=== PATIENT | male | born 1945 | race Caucasian/White ===

== ENCOUNTER 2020-05-09 18:32 | Emergency (ER) | payer BC ==
[~2020-05-09] VITALS: Ht 182.9 cm; Wt 77.1 kg
== END 2020-05-09 19:45 | disposition left against medical advice (07) ==
LOC: ER 18:32
DX: Z53.21 Procedure and treatment not carried out due to patient leaving prior to being seen by health care provider (principal)

== ENCOUNTER 2021-11-24 12:46 | Day surgery (SDC) | payer BC ==
[~2021-11-24] VITALS: Ht 182.9 cm; Wt 66.3 kg
== END 2021-11-24 14:59 | disposition home or self-care (01) ==
LOC: ORSCSDS 12:46
PROVIDERS: Student in an Organized Health Care Education/Training Program
PROC: 0DBH8ZX Excision of Cecum, Via Natural or Artificial Opening Endoscopic, Diagnostic (ICD-10-PCS; principal; 2021-11-24 09:30)
PROC: 0DBN8ZX Excision of Sigmoid Colon, Via Natural or Artificial Opening Endoscopic, Diagnostic (ICD-10-PCS; principal; 2021-11-24 09:30)
PROC: 0DBK8ZX Excision of Ascending Colon, Via Natural or Artificial Opening Endoscopic, Diagnostic (ICD-10-PCS; principal; 2021-11-24 09:30)
PROC: 0DBL8ZX Excision of Transverse Colon, Via Natural or Artificial Opening Endoscopic, Diagnostic (ICD-10-PCS; principal; 2021-11-24 09:30)
DX: Z12.11 Encounter for screening for malignant neoplasm of colon (principal); D12.3 Benign neoplasm of transverse colon; D12.2 Benign neoplasm of ascending colon; D12.0 Benign neoplasm of cecum; D12.5 Benign neoplasm of sigmoid colon; K63.89 Other specified diseases of intestine
CPT/HCPCS: J2704; J7120

== ENCOUNTER 2023-03-25 19:13 | Emergency (ER) | payer MEDICARE ==
[~2023-03-25] VITALS: Ht 182.9 cm; Wt 70.3 kg
[2023-03-25 19:25] VITALS: BP 169/81
== END 2023-03-25 21:16 | disposition home or self-care (01) ==
LOC: ER 19:13
DX: R51.9 Headache, unspecified (principal)
CPT/HCPCS: 36415; 70450; 96374; 96375; 99284-25; J0780; J1200; J1885

== ENCOUNTER → 2023-06-28 | Outpatient (CLI) | payer MEDICARE ==
[~2023-06-28] MED LIST: AMLODIPINE BESYL5 MG PO; AMOCLA875 PO; LISI20 PO; ONDA4ODT MM; SULFAMETHOXAZO1 EAC1 PO
[2023-06-28 17:41] LABS: C-REACTIVE PROTEIN, EXT RANGE 1.82 mg/dL (0.000-0.300); Magnesium, Blood 2.5 mg/dL (1.6-2.4)
[2023-06-28 17:51] LABS: Albumin, Blood 3.1 g/dL (3.4-5.0); Albumin/Globulin Ratio 0.8 (0.8-1.8); Bilirubin, Total 0.5 mg/dL (0.1-1.0); Bun/Creatinine Ratio 16.8 (12.0-20.0); Calcium, Blood 8.9 mg/dL (8.5-10.1); Creatinine, Blood 1.25 mg/dL (0.60-1.20); Globulin, Blood 4.1 g/dL (2.2-4.0); Phosphorus, Blood 2.9 mg/dL (2.5-4.9); Potassium, Blood 4.2 mmol/L (3.5-5.5); Thyroid Stimulating Hormone 0.718 uIU/mL (0.360-4.800); Total Protein, Blood 7.2 g/dL (6.4-8.2)
== END | disposition home or self-care (01) ==
LOC: LAB SHORT 14:23 → LAB 14:23
PROVIDERS: Family Medicine
DX: G44.021 Chronic cluster headache, intractable (principal); I10 Essential (primary) hypertension; L85.3 Xerosis cutis
CPT/HCPCS: 80053; 83735; 84100; 84443; 85651; 86140

== ENCOUNTER 2023-06-30 05:48 | Emergency (ER) | payer MEDICARE ==
[~2023-06-30] VITALS: Ht 180.3 cm; Wt 65.8 kg
[2023-06-30] MEDS ORDERED: LISI20 PO (05:59)
[2023-06-30] MEDS ORDERED: AMLODIPINE BESYL5 MG PO (05:59)
[2023-06-30] MEDS ORDERED: SULFAMETHOXAZO1 EAC1 PO (05:59)
[2023-06-30 06:19] LABS: BASOPHILS ABSOLUTE AUTO 0.04 K/mm3 (0.00-0.23); BASOPHILS PERCENT AUTO 1 % (0-2); EOSINOPHILS ABSOLUTE AUTO 0.02 K/mm3 (0.00-0.68); EOSINOPHILS PERCENT AUTO 0 % (0-6); Hematocrit 38.2 % (37.0-53.0); Hemoglobin 12.5 g/dL (13.5-17.5); IMMATURE GRAN ABSOLUTE AUTO 0.03 K/mm3 (0.00-0.10); IMMATURE GRAN PERCENT AUTO 1 % (0-1); LYMPHOCYTES ABSOLUTE AUTO 0.32 K/mm3 (0.84-5.20); LYMPHOCYTES PERCENT AUTO 5 % (21-46); MONOCYTES ABSOLUTE AUTO 0.56 K/mm3 (0.16-1.47); MONOCYTES PERCENT AUTO 9 % (4-13); Mean Corpuscular HGB 28.9 pg (26.0-34.0); Mean Corpuscular HGB Conc 32.7 g/dL (31.5-36.5); Mean Corpuscular Volume 88 fL (80-100); NEUTROPHILS ABSOLUTE AUTO 5.06 K/mm3 (1.96-9.15); NEUTROPHILS PERCENT AUTO 84 % (41-73); Platelet Count 217 K/mm3 (150-400); RDW Coefficient Variation 13.2 % (11.7-14.2); Red Blood Cell Count 4.32 M/mm3 (4.30-5.90); White Blood Cell Count 6.03 K/mm3 (4.00-11.30)
[2023-06-30 06:47] LABS: Albumin, Blood 3.1 g/dL (3.4-5.0); Albumin/Globulin Ratio 0.8 (0.8-1.8); Bilirubin, Total 0.8 mg/dL (0.1-1.0); Bun/Creatinine Ratio 14.1 (12.0-20.0); Calcium, Blood 8.7 mg/dL (8.5-10.1); Creatinine, Blood 1.56 mg/dL (0.60-1.20); Globulin, Blood 3.8 g/dL (2.2-4.0); Potassium, Blood 4.7 mmol/L (3.5-5.5); Total Protein, Blood 6.9 g/dL (6.4-8.2)
[2023-06-30 08:44] LABS: Influenza A, PCR NEGATIVE (NEGATIVE); Influenza B, PCR NEGATIVE (NEGATIVE); Resp Syncytial Virus, PCR NEGATIVE (NEGATIVE); SARS-Cov-2 (COVID-19) PCR, MMC NEGATIVE (NEGATIVE)
[2023-06-30] MEDS ORDERED: AMOCLA875 PO (09:20)
[2023-06-30] MEDS ORDERED: ONDA4ODT MM (09:20)
[2023-06-30 09:33] VITALS: BP 105/79
== END 2023-06-30 09:33 | disposition home or self-care (01) ==
LOC: ER 05:48
PROVIDERS: Emergency Medicine; Student in an Organized Health Care Education/Training Program
DX: J18.9 Pneumonia, unspecified organism (principal); N17.9 Acute kidney failure, unspecified; E86.0 Dehydration; Z20.822 Contact with and (suspected) exposure to COVID-19; I10 Essential (primary) hypertension; Z79.2 Long term (current) use of antibiotics; Z79.899 Other long term (current) drug therapy
CPT/HCPCS: 0241U; 71045; 80053; 84145; 85025; 93005; 93010; 96361; 96374; 99284-25; A9270; J2405; J7030

== ENCOUNTER 2023-07-18 14:11 | Inpatient (IN) | payer MEDICARE ==
[~2023-07-18] VITALS: Ht 180.3 cm; Wt 68.0 kg
[2023-07-18] VITALS (7 sets, daily range): BP systolic 117–126; BP diastolic 56–70
--- NOTE | 2023-07-18 18:53 | NUR ---
ADMIT NOTE. PT WAS A DIRECT ADMIT FROM [facility] IN [place]. PT HAS HAD LOW GRADE FEVER 101.2 SINCE ARRIVAL. BP HAS BEEN STABLE. PT HAS MOSTLY BEEN RESTING SINCE ARRIVING. CONCERNS FOR FALL RISK, BED ALARM IS ACTIVE. PT IS WEAK AND FORGETFUL, FELL THIS MORNING IN THE BATHROOM AT HOME. WAS HERE THIS AFTERNOON, CONTACT NUMBER ON THE BOARD. POWERGLIDE PLACED TO LUE. PT IS ABLE TO MAKE NEEDS KNOWN, CALL LIGHT IS WITHIN REACH.
--- NOTE | 2023-07-18 19:40 | NUR ---
ASSESSMENT/ASSUMED CARE PT SITTING UP IN BED WITH EYES CLOSED. AWAKENS EASILY TO VERBAL STIMULI. PT VERY [place]. DENIES PAIN OR DISCOMFORT. LUNGS CLEAR ON ROOMAIR. RESP EVEN AND NONLABORED. HEART RATE REGULAR. DENIES CHEST PAIN OR PRESSURE. BP STABLE. RIGHT HAND MIDDLE FINGER RED AND SWOLLEN. PT STATES,"IT LOOKS A LOT BETTER ALREADY". REMOVED IV TO RIGHT WRIST TO BETTER ASSESS SWELLING AND REDNESS TO RIGHT HAND. BT+ ABD SOFT AND NONTENDER. POWER GLIDE TO LEFT UPPER ARM WITH IV ANTIBIOTIC INFUSING. SITE CLEAR AND DRSG INTACT. PT ABLE TO STAND AT BEDSIDE WITH STAFF TO VOID. VOIDED 175 ML YELLOW URINE. BACK TO BED. BED ALARM ON. TEMP 101.6. CALL OUT TO MD FOR TYLENOL.
--- NOTE | 2023-07-18 19:50 | NUR ---
SPOKE WITH RESIDENT REGARDING FEVER 101.6. RECEIVED ORDER FOR TYLENOL
[2023-07-19 03:33] VITALS: BP 174/75
--- NOTE | 2023-07-19 04:11 | NUR ---
FEVER TEMP 101.3, GIVEN TYLENOL AND REMOVED BLANKET. PT C/O BEING COLD. RECHECK TEMP PT HAD COVERED SELF WITH BLANKET. TEMP UP 103.7. REMOVED BLANKET. TALKED WITH DR GALINDO REGARDING TEMP, OBTAINED ONE TIME ORDER FOT TORADOL IV. PT STATES,"I WANT MY BLANKET BACK. I WAS JUST GETTING WARM AND NOW I'M COLD AGAIN. I DON'T CARE ABOUT A FEVER. I WANT TO BE WARM". WILL RECHECK TEMP
[2023-07-19 04:13] LABS: BASOPHILS ABSOLUTE AUTO 0.02 K/mm3 (0.00-0.23); BASOPHILS PERCENT AUTO 1 % (0-2); EOSINOPHILS PERCENT AUTO 0 % (0-6); Hematocrit 37.5 % (37.0-53.0); Hemoglobin 11.9 g/dL (13.5-17.5); IMMATURE GRAN ABSOLUTE AUTO 0.02 K/mm3 (0.00-0.10); IMMATURE GRAN PERCENT AUTO 1 % (0-1); LYMPHOCYTES ABSOLUTE AUTO 0.24 K/mm3 (0.84-5.20); LYMPHOCYTES PERCENT AUTO 8 % (21-46); MONOCYTES ABSOLUTE AUTO 0.07 K/mm3 (0.16-1.47); MONOCYTES PERCENT AUTO 2 % (4-13); Mean Corpuscular HGB 28.7 pg (26.0-34.0); Mean Corpuscular HGB Conc 31.7 g/dL (31.5-36.5); Mean Corpuscular Volume 91 fL (80-100); Mean Platelet Volume 9.6 fL (9.1-12.4); NEUTROPHILS ABSOLUTE AUTO 2.62 K/mm3 (1.96-9.15); NEUTROPHILS PERCENT AUTO 88 % (41-73); Platelet Count 178 K/mm3 (150-400); RDW Coefficient Variation 12.9 % (11.7-14.2); RDW Standard Deviation 42.8 fL (35.1-46.3); Red Blood Cell Count 4.14 M/mm3 (4.30-5.90); White Blood Cell Count 2.97 K/mm3 (4.00-11.30)
[2023-07-19 04:32] LABS: Albumin, Blood 2.6 g/dL (3.4-5.0); Albumin/Globulin Ratio 0.6 (0.8-1.8); Bilirubin, Total 1.1 mg/dL (0.1-1.0); Bun/Creatinine Ratio 11.1 (12.0-20.0); C-REACTIVE PROTEIN, EXT RANGE 12.6 mg/dL (0.000-0.300); Calcium, Blood 8.2 mg/dL (8.5-10.1); Creatinine, Blood 1.35 mg/dL (0.60-1.20); Magnesium, Blood 1.8 mg/dL (1.6-2.4); Phosphorus, Blood 2.7 mg/dL (2.5-4.9); Potassium, Blood 4.4 mmol/L (3.5-5.5); Total Protein, Blood 6.6 g/dL (6.4-8.2)
--- NOTE | 2023-07-19 06:36 | NUR ---
SHIFT SUMMARY PT HAVING FEVERS DURING THE NIGHT WITH TMAX 103.7. MED WITH TYLENOL AND TORADOL FOR FEVERS WITH GOOD RESULTS. IV ANTIBIOTICS GIVEN PER ORDER. PT MOVING AND TURNING SELF IN BED. STANDS AT BEDSIDE TO VOID WITH ONE ASSIST. PT RESTING QUIETLY. REPORT TO ON COMING NURSE
[2023-07-19 07:48] VITALS: BP 99/51
--- NOTE | 2023-07-19 07:50 | NUR ---
ADMISSION ASSESSMENT: Pt appears to be sleeping. Wakes with verbal stimululs. A/Ox4. LS clear. HR reg with murmur noted. BT positive. Pt denies pain at this time. Redness and swelling noted to R middle finger. Pulses palp. Pt is afebrial at this time. Will continue to monitor for temp. Call light in reach. Will continue to monitor.
[2023-07-19 15:48] VITALS: BP 157/94
--- NOTE | 2023-07-19 17:26 | NUR ---
SHIFT SUMMARY: Pt sitting up in bed eating dinner. States that he isn't that hungery. Pt has been dozing for most of the day. Had a Temp 102.2 this afternoon that was treated with tylenol. Temp has since decreased. Other vss. Pt denied other needs this shift. No other changes. Will report to night RN.
[2023-07-19 17:40] LABS: Vancomycin, Trough 13.7 ug/mL (5.0-10.0)
[2023-07-19 20:30] VITALS: BP 115/58
--- NOTE | 2023-07-19 21:30 | NUR ---
YASSUMPTION OF CARE/ASSESSMENT: ASSUMED CARE OF PT AT 1900. PT IS A&O X 4, FOLLOWING DIRECTIONS AND COOPERATIVE WITH CARE; PT HARD OF HEARING. PT CURRENTLY ON RA WITH SPO2 96< AND NO C/O SOB AT THIS TIME. HR 70'S, SBP 110'S AND PT DENIES CHEST PAIN/PRESSURE. PT HAS HYPERACTIVE BOWEL SOUNDS IN ALL QUADRANTS; ABD SOFT, NON-TENDER AND TOLERATING PO INTAKE. PT USING URINAL AT BEDSIDE WITH SBA. PT MAKES NEEDS KNOWN. PT HAS INDEPENDENT BED MOBILITY. PT TMAX 100.5; MEDICATED WITH TYLENOL PER EMAR AND NO TEMP 98.4. BED LOWERED, CALL LIGHT IN REACH, PT SLEEPING AT THIS TIME.
[2023-07-20 05:10] LABS: BASOPHILS ABSOLUTE AUTO 0.02 K/mm3 (0.00-0.23); BASOPHILS PERCENT AUTO 1 % (0-2); EOSINOPHILS PERCENT AUTO 0 % (0-6); Hematocrit 34.3 % (37.0-53.0); Hemoglobin 11.1 g/dL (13.5-17.5); Mean Corpuscular HGB 28.9 pg (26.0-34.0); Mean Corpuscular HGB Conc 32.4 g/dL (31.5-36.5); Mean Corpuscular Volume 89 fL (80-100); Mean Platelet Volume 9.5 fL (9.1-12.4); Platelet Count 117 K/mm3 (150-400); RDW Standard Deviation 42.5 fL (35.1-46.3); Red Blood Cell Count 3.84 M/mm3 (4.30-5.90); White Blood Cell Count 2.89 K/mm3 (4.00-11.30)
[2023-07-20 05:33] LABS: Albumin, Blood 2.1 g/dL (3.4-5.0); Anion Gap 6 mmol/L (6-16); Blood Urea Nitrogen 20 mg/dL (8-24); Bun/Creatinine Ratio 17.1 (12.0-20.0); CO2, Blood 21 mmol/L (21-32); Calcium, Blood 7.9 mg/dL (8.5-10.1); Chloride, Blood 111 mmol/L (98-108); Creatinine, Blood 1.17 mg/dL (0.60-1.20); Glomerular Filtration Rate 65 (60-); Glucose, Blood 80 mg/dL (70-99); Magnesium, Blood 2.3 mg/dL (1.6-2.4); Phosphorus, Blood 2.5 mg/dL (2.5-4.9); Potassium, Blood 3.9 mmol/L (3.5-5.5); Sodium, Blood 138 mmol/L (136-145)
[2023-07-20 05:34] LABS: IMMATURE GRAN ABSOLUTE AUTO 0.01 K/mm3 (0.00-0.10); IMMATURE GRAN PERCENT AUTO 0 % (0-1); LYMPHOCYTES ABSOLUTE AUTO 0.54 K/mm3 (0.84-5.20); LYMPHOCYTES PERCENT AUTO 19 % (21-46); MONOCYTES ABSOLUTE AUTO 0.23 K/mm3 (0.16-1.47); MONOCYTES PERCENT AUTO 8 % (4-13); NEUTROPHILS ABSOLUTE AUTO 2.09 K/mm3 (1.96-9.15); NEUTROPHILS PERCENT AUTO 72 % (41-73)
--- NOTE | 2023-07-20 06:06 | NUR ---
SHIFT SUMMARY: NO ACUTE CHANGES THROUGHOUT THE SHIFT, VSS TRHOUGHOUT THE NIGHT. PT TMAX 100.3, TYLENOL GIVEN PER EMAR AND NOW TEMP AT 98.2. PT INDEPENDENT WITH BED MOBILITY. SBA FOR URINAL AT BEDSIDE; PT UP ONCE THIS SHIFT TO USE URINAL WITH 275 OUTPUT AND WAS STEADY ON FEET. PT SLEPT FOR THE WHOLE SHIFT. BED LOWERED, CALL LIGHT IN REACH.
[2023-07-20 07:22] VITALS: BP 119/66
--- NOTE | 2023-07-20 07:23 | NUR ---
AM ASSESSMENT: Pt resting in bed at this time. LS clear. HR reg with murmur noted. BT positive. Pulses palp. R middle finger with swelling noted but redness greatly decreased from yesterday. VSS. Pt denies pain. States that he is feeling better. Call light in reach, Will continue to monitor.
--- NOTE | 2023-07-20 09:18 | NUR ---
UPDATE/TRANSFER: Report given to medical floor RN. Pt moved via bed to room 359. Stable at time of transfer. number called and message left about pt moving rooms.
[2023-07-20 09:25] VITALS: BP 132/57
[2023-07-20 15:06] VITALS: BP 155/64
[2023-07-20 17:34] LABS: Vancomycin, Random 14.2 ug/mL
--- NOTE | 2023-07-20 20:04 | NUR ---
SHIFT SUMMARY PATIENT WITH NO ACUTE EVENTS DURING SHIFT. MEDICATED PER EMAR. CALL LIGT IN REACH, BED IN LOW POSITION. AOX4 AND INDEPENDENT TO BATHROOM.
[2023-07-20 20:27] VITALS: BP 151/62
[2023-07-21 04:07] VITALS: BP 126/59
[2023-07-21 05:00] LABS: BASOPHILS ABSOLUTE AUTO 0.02 K/mm3 (0.00-0.23); BASOPHILS PERCENT AUTO 1 % (0-2); EOSINOPHILS PERCENT AUTO 0 % (0-6); Hemoglobin 10.8 g/dL (13.5-17.5); Mean Corpuscular HGB 28.8 pg (26.0-34.0); Mean Corpuscular HGB Conc 32.7 g/dL (31.5-36.5); Mean Corpuscular Volume 88 fL (80-100); Mean Platelet Volume 9.9 fL (9.1-12.4); Platelet Count 111 K/mm3 (150-400); RDW Coefficient Variation 12.9 % (11.7-14.2); RDW Standard Deviation 41.4 fL (35.1-46.3); Red Blood Cell Count 3.75 M/mm3 (4.30-5.90); White Blood Cell Count 3.79 K/mm3 (4.00-11.30)
[2023-07-21 05:09] LABS: IMMATURE GRAN ABSOLUTE AUTO 0.02 K/mm3 (0.00-0.10); IMMATURE GRAN PERCENT AUTO 1 % (0-1); LYMPHOCYTES ABSOLUTE AUTO 0.87 K/mm3 (0.84-5.20); LYMPHOCYTES PERCENT AUTO 23 % (21-46); MONOCYTES ABSOLUTE AUTO 0.46 K/mm3 (0.16-1.47); MONOCYTES PERCENT AUTO 12 % (4-13); NEUTROPHILS ABSOLUTE AUTO 2.42 K/mm3 (1.96-9.15); NEUTROPHILS PERCENT AUTO 64 % (41-73)
[2023-07-21 05:28] LABS: Albumin, Blood 2.1 g/dL (3.4-5.0); Anion Gap 6 mmol/L (6-16); Blood Urea Nitrogen 18 mg/dL (8-24); Bun/Creatinine Ratio 17.3 (12.0-20.0); CO2, Blood 22 mmol/L (21-32); Calcium, Blood 8.1 mg/dL (8.5-10.1); Chloride, Blood 112 mmol/L (98-108); Creatinine, Blood 1.04 mg/dL (0.60-1.20); Glomerular Filtration Rate 74 (60-); Glucose, Blood 89 mg/dL (70-99); Magnesium, Blood 2.1 mg/dL (1.6-2.4); Phosphorus, Blood 2.1 mg/dL (2.5-4.9); Potassium, Blood 3.8 mmol/L (3.5-5.5); Sodium, Blood 140 mmol/L (136-145)
--- NOTE | 2023-07-21 06:32 | NUR ---
SHIFT SUMMARY PT REMAINS A&O X4, ON RA, RESP UNLABORED, PT DENIES PAIN, ENC TO ELEVATE RIGHT HAND, DB&C EDUCATION PROVIDED, PT HAD AN INCREASED TEMP OF 102.2 THROUGH THE NIGHT, HE WAS GIVEN PO TYLENOL, AFEBRILE AT THIS TIME, SBA TO THE BATHROOM, NO OTHER CHANGES NOTED, RESTING QUIETLY THIS AT THIS TIME, CALL LIGHT IN REACH.
[2023-07-21 07:54] VITALS: BP 132/65
[2023-07-21 15:14] VITALS: BP 128/58
--- NOTE | 2023-07-21 17:45 | NUR ---
SUMMARY- PT DENIES ANY PAIN THIS SHIFT. PT GIVEN TYLENOL FOR TEMP OF 100.4 THIS EVENING. PT STAYED IN BED MOST OF THE SHIFT. SBA TO THE BATHROOM. AAOX4, BUT FORGETFUL.
[2023-07-21 19:43] VITALS: BP 124/55
[2023-07-22 02:30] VITALS: BP 149/71
--- NOTE | 2023-07-22 04:56 | NUR ---
GTA SUMMARY: A&Ox4. PLEASANT AND COOPERATIVE WITH CARE. CALLS APPROPRIATELY AND IS ABLE TO COMMUNICATE NEEDS EFFECTIVELY. POWERGLIDE TABBY FLUSHES BUT DOES NOT DRAW. LABS DRAWN THIS MORNING; NO CRITICAL RESULTS RECEIVED. SLEPT WELL THROUGHOUT THE NIGHT. NO C/O PAIN OR DISCOMFORT. NO CONCERNS. REPORT TO ONCOMING RN.
[2023-07-22 05:06] LABS: BASOPHILS ABSOLUTE AUTO 0.01 K/mm3 (0.00-0.23); BASOPHILS PERCENT AUTO 0 % (0-2); EOSINOPHILS PERCENT AUTO 0 % (0-6); Hematocrit 32.9 % (37.0-53.0); Hemoglobin 10.7 g/dL (13.5-17.5); IMMATURE GRAN ABSOLUTE AUTO 0.02 K/mm3 (0.00-0.10); IMMATURE GRAN PERCENT AUTO 1 % (0-1); LYMPHOCYTES ABSOLUTE AUTO 0.94 K/mm3 (0.84-5.20); LYMPHOCYTES PERCENT AUTO 22 % (21-46); MONOCYTES ABSOLUTE AUTO 0.43 K/mm3 (0.16-1.47); MONOCYTES PERCENT AUTO 10 % (4-13); Mean Corpuscular HGB 28.3 pg (26.0-34.0); Mean Corpuscular HGB Conc 32.5 g/dL (31.5-36.5); Mean Corpuscular Volume 87 fL (80-100); Mean Platelet Volume 9.7 fL (9.1-12.4); NEUTROPHILS ABSOLUTE AUTO 2.92 K/mm3 (1.96-9.15); NEUTROPHILS PERCENT AUTO 68 % (41-73); Platelet Count 112 K/mm3 (150-400); RDW Coefficient Variation 12.9 % (11.7-14.2); RDW Standard Deviation 40.9 fL (35.1-46.3); Red Blood Cell Count 3.78 M/mm3 (4.30-5.90); White Blood Cell Count 4.32 K/mm3 (4.00-11.30)
[2023-07-22 05:32] LABS: Albumin, Blood 2.1 g/dL (3.4-5.0); Anion Gap 2 mmol/L (6-16); Blood Urea Nitrogen 15 mg/dL (8-24); Bun/Creatinine Ratio 16.6 (12.0-20.0); CO2, Blood 24 mmol/L (21-32); Calcium, Blood 7.8 mg/dL (8.5-10.1); Chloride, Blood 113 mmol/L (98-108); Glomerular Filtration Rate 89 (60-); Glucose, Blood 99 mg/dL (70-99); Phosphorus, Blood 1.7 mg/dL (2.5-4.9); Potassium, Blood 3.9 mmol/L (3.5-5.5); Sodium, Blood 139 mmol/L (136-145)
[2023-07-22 07:25] VITALS: BP 138/73
[2023-07-22 15:08] VITALS: BP 117/57
--- NOTE | 2023-07-22 18:18 | NUR ---
SUMMARY- NO ACUTE EVENTS THIS SHIFT. NO HIGH TEMPS THIS SHIFT. PT DENIES PAIN. SBA. AAOX4 BUT FORGETFUL.
[2023-07-22 19:44] VITALS: BP 125/66
[2023-07-22 22:26] LABS: Vancomycin, Trough 15.9 ug/mL (5.0-10.0)
[2023-07-23 04:38] VITALS: BP 145/69
[2023-07-23 05:11] LABS: BASOPHILS ABSOLUTE AUTO 0.01 K/mm3 (0.00-0.23); BASOPHILS PERCENT AUTO 0 % (0-2); EOSINOPHILS PERCENT AUTO 0 % (0-6); Hematocrit 32.7 % (37.0-53.0); Hemoglobin 10.6 g/dL (13.5-17.5); IMMATURE GRAN ABSOLUTE AUTO 0.01 K/mm3 (0.00-0.10); IMMATURE GRAN PERCENT AUTO 0 % (0-1); LYMPHOCYTES ABSOLUTE AUTO 1.06 K/mm3 (0.84-5.20); LYMPHOCYTES PERCENT AUTO 23 % (21-46); MONOCYTES ABSOLUTE AUTO 0.46 K/mm3 (0.16-1.47); MONOCYTES PERCENT AUTO 10 % (4-13); Mean Corpuscular HGB 28.3 pg (26.0-34.0); Mean Corpuscular HGB Conc 32.4 g/dL (31.5-36.5); Mean Corpuscular Volume 87 fL (80-100); Mean Platelet Volume 10.3 fL (9.1-12.4); NEUTROPHILS ABSOLUTE AUTO 2.99 K/mm3 (1.96-9.15); NEUTROPHILS PERCENT AUTO 66 % (41-73); Platelet Count 136 K/mm3 (150-400); RDW Coefficient Variation 12.8 % (11.7-14.2); Red Blood Cell Count 3.75 M/mm3 (4.30-5.90); White Blood Cell Count 4.53 K/mm3 (4.00-11.30)
[2023-07-23 06:09] LABS: Albumin, Blood 2.1 g/dL (3.4-5.0); Anion Gap 2 mmol/L (6-16); Blood Urea Nitrogen 11 mg/dL (8-24); Bun/Creatinine Ratio 11.8 (12.0-20.0); CO2, Blood 26 mmol/L (21-32); Chloride, Blood 111 mmol/L (98-108); Creatinine, Blood 0.93 mg/dL (0.60-1.20); Glomerular Filtration Rate 85 (60-); Glucose, Blood 99 mg/dL (70-99); Phosphorus, Blood 1.7 mg/dL (2.5-4.9); Potassium, Blood 4.1 mmol/L (3.5-5.5); Sodium, Blood 139 mmol/L (136-145)
--- NOTE | 2023-07-23 06:43 | NUR ---
SUMMARY: PT A/OX4, CALLS APPROPRIATELY TO SPECIFY NEEDS AND IS PLEASANT AND COOPERATIVE W/CARE. HE'S UP INDEPENDENTLY/SBA IN ROOM AND IS AWARE OF LIMITATIONS. IV ABX RECEIVED FOR R.INDEX FINGER CELLULITIS, SWELLING AND ROM IMPROVING. VSS/AFEBRILE, NO ACUTE CHANGES. POSSIBLE D/C TODAY. WCTM AND REPORT TO DAY RN.
[2023-07-23 07:32] VITALS: BP 142/69
[2023-07-23] MEDS ORDERED: LISI20 PO (13:57)
--- NOTE | 2023-07-23 16:33 | NUR ---
KRISTEN- RN BROUGHT PT DOWN FRO DC IN WC IN STABLE CONDITION. PT LEFT WITH ALL BELONGINGS/ PT SIGNED ALL DC PAPERWORK AND VERBALLY AGREED TO ALL DC INSTRUCTIONS.
== END 2023-07-23 15:10 | disposition home or self-care (01) | DRG 603 ==
LOC: PCU 14:11 → MEDS 07-20 09:39
PROVIDERS: ADMIT Family Medicine
DX: L03.011 Cellulitis of right finger (principal); N17.9 Acute kidney failure, unspecified; I50.32 Chronic diastolic (congestive) heart failure; N40.0 Benign prostatic hyperplasia without lower urinary tract symptoms; M19.90 Unspecified osteoarthritis, unspecified site; I11.0 Hypertensive heart disease with heart failure; F41.8 Other specified anxiety disorders; Z79.811 Long term (current) use of aromatase inhibitors; Z79.899 Other long term (current) drug therapy
CPT/HCPCS: 36415; 73221; 80053; 80069; 80202; 83735; 84100; 85025; 85651; 86140; 97161; 97165; 97535; A9270; C1751; C8929; J0692; J1650; J1885; J3370; J3475; J7050; J7060; Q9957

== ENCOUNTER → 2023-07-18 | Outpatient (CLI) | payer MEDICARE | LOC: LAB SHORT 10:51 → LAB 10:51 | DX: L03.011 Cellulitis of right finger (principal) | CPT/HCPCS: 87040 ==

== ENCOUNTER 2024-08-21 11:32 | Day surgery (SDC) | payer OTHER ==
[~2024-08-21] VITALS: Ht 180.3 cm; Wt 71.7 kg
[~2024-08-21 11:32] MED LIST changes: +Balanced Salt Epinephrine Irrigation Solution 500 mL IR SCH; +Lidocaine HCl/Pf 1% 5 ML VIAL XX SCH; +Moxifloxacin HCL 0.5 MG/0.1 ML 0.4MLSYR LEFTEYE SCH; +NS 500 ML IV ONE; +PHENYLEPHRINE\\TROPICAMIDE\\TETRACAINE OPHTHALMIC DILATING SOLN LEFTEYE PRN; +Povidone-Iodine 450 DROP/30 ML Solution LEFTEYE SCH; +Povidone-Iodine 450 DROP/30 ML Solution ONE; +Tetracaine HCl/Pf 0.5% Opth Soln 4 ml ONE; +Triamcinolone Inj Susp 40 MG / ML 1ML Vial INJ SCH; +Triamcinolone Inj Susp 40 MG / ML 1ML Vial ONE
[2024-08-21] MEDS ORDERED: NS 500 ML IV ONE ×2 (11:48)
[2024-08-21] MEDS ORDERED: TAMSULOSIN HCL0.4 M1 PO (11:53)
[2024-08-21] MEDS ORDERED: FentaNYL Citrate 50 MCG/ML 2 ML Injection ONE (12:16)
[2024-08-21 13:01] VITALS: BP 117/65
== END 2024-08-21 13:20 | disposition home or self-care (01) ==
LOC: ORSCSDS 11:32
PROVIDERS: Ophthalmology
PROC: 08RK3JZ Replacement of Left Lens with Synthetic Substitute, Percutaneous Approach (ICD-10-PCS; principal; 2024-08-21 13:00)
DX: H25.813 Combined forms of age-related cataract, bilateral (principal); I10 Essential (primary) hypertension; Z79.899 Other long term (current) drug therapy
CPT/HCPCS: J3010; J3301; J7040; V2632

== ENCOUNTER 2024-08-28 10:46 | Day surgery (SDC) | payer OTHER ==
[~2024-08-28] VITALS: Ht 182.9 cm; Wt 72.3 kg
[~2024-08-28 10:46] MED LIST changes: -Moxifloxacin HCL 0.5 MG/0.1 ML 0.4MLSYR LEFTEYE SCH; +Moxifloxacin HCL 0.5 MG/0.1 ML 0.4MLSYR RIGHTEYE SCH; -PHENYLEPHRINE\\TROPICAMIDE\\TETRACAINE OPHTHALMIC DILATING SOLN LEFTEYE PRN; +PHENYLEPHRINE\\TROPICAMIDE\\TETRACAINE OPHTHALMIC DILATING SOLN RIGHTEYE PRN; -Povidone-Iodine 450 DROP/30 ML Solution LEFTEYE SCH; +Povidone-Iodine 450 DROP/30 ML Solution RIGHTEYE SCH; +TAMSULOSIN HCL0.4 M1 PO; +Tetracaine HCl 0.5% Opth Soln 15 ml ONE
[2024-08-28] MEDS ORDERED: NS 500 ML IV ONE (12:12)
[2024-08-28] MEDS ORDERED: FentaNYL Citrate 50 MCG/ML 2 ML Injection ONE (12:41)
[2024-08-28] MEDS ORDERED: Midazolam HCl 1MG / ML 2ML Vial ONE (12:41)
[2024-08-28] MEDS ORDERED: Ondansetron HCl 2 MG / ML 2ML Vial ONE (12:41)
[2024-08-28 13:26] VITALS: BP 112/56
--- NOTE | 2024-08-28 13:27 | NUR ---
08/28/24 1327 Moriah Lynn PT UP DRINKING DIET PEPSI WITHOUT ISSUE. SPOUSE TAIWO DID NOT ANSWER, WILL KEEP TRYING.
== END 2024-08-28 13:33 | disposition home or self-care (01) ==
LOC: ORSCSDS 10:46
PROVIDERS: Ophthalmology
PROC: 08RJ3JZ Replacement of Right Lens with Synthetic Substitute, Percutaneous Approach (ICD-10-PCS; principal; 2024-08-28 13:00)
DX: H25.811 Combined forms of age-related cataract, right eye (principal); Z96.1 Presence of intraocular lens; I10 Essential (primary) hypertension; Z79.899 Other long term (current) drug therapy
CPT/HCPCS: J2250; J2405; J3010; J3301; J7040; V2632

== ENCOUNTER 2024-12-18 02:27 | Emergency (ER) | payer MEDICARE ==
[~2024-12-18] VITALS: Ht 182.9 cm; Wt 70.8 kg
[~2024-12-18 02:27] MED LIST changes: -Balanced Salt Epinephrine Irrigation Solution 500 mL IR SCH; -Lidocaine HCl/Pf 1% 5 ML VIAL XX SCH; -Moxifloxacin HCL 0.5 MG/0.1 ML 0.4MLSYR RIGHTEYE SCH; -NS 500 ML IV ONE; -PHENYLEPHRINE\\TROPICAMIDE\\TETRACAINE OPHTHALMIC DILATING SOLN RIGHTEYE PRN; -Povidone-Iodine 450 DROP/30 ML Solution ONE; -Povidone-Iodine 450 DROP/30 ML Solution RIGHTEYE SCH; -Tetracaine HCl 0.5% Opth Soln 15 ml ONE; -Tetracaine HCl/Pf 0.5% Opth Soln 4 ml ONE; -Triamcinolone Inj Susp 40 MG / ML 1ML Vial INJ SCH; -Triamcinolone Inj Susp 40 MG / ML 1ML Vial ONE
[2024-12-18 02:41] LABS: BASOPHILS ABSOLUTE AUTO 0.02 K/mm3 (0.00-0.23); BASOPHILS PERCENT AUTO 0 % (0-2); EOSINOPHILS ABSOLUTE AUTO 0.08 K/mm3 (0.00-0.68); EOSINOPHILS PERCENT AUTO 1 % (0-6); Hematocrit 35.4 % (37.0-53.0); Hemoglobin 11.8 g/dL (13.5-17.5); IMMATURE GRAN ABSOLUTE AUTO 0.01 K/mm3 (0.00-0.10); IMMATURE GRAN PERCENT AUTO 0 % (0-1); LYMPHOCYTES ABSOLUTE AUTO 0.29 K/mm3 (0.84-5.20); LYMPHOCYTES PERCENT AUTO 5 % (21-46); MONOCYTES PERCENT AUTO 13 % (4-13); Mean Corpuscular HGB 29.8 pg (26.0-34.0); Mean Corpuscular HGB Conc 33.3 g/dL (31.5-36.5); Mean Corpuscular Volume 89 fL (80-100); Mean Platelet Volume 9.2 fL (9.1-12.4); NEUTROPHILS ABSOLUTE AUTO 5.02 K/mm3 (1.96-9.15); NEUTROPHILS PERCENT AUTO 81 % (41-73); Platelet Count 226 K/mm3 (150-400); RDW Standard Deviation 42.5 fL (35.1-46.3); Red Blood Cell Count 3.96 M/mm3 (4.30-5.90); White Blood Cell Count 6.22 K/mm3 (4.00-11.30)
[2024-12-18 02:54] LABS: Albumin, Blood 3.2 g/dL (3.4-5.0); Albumin/Globulin Ratio 0.8 (0.8-1.8); Bilirubin, Total 0.7 mg/dL (0.1-1.0); Calcium, Blood 8.6 mg/dL (8.5-10.1); Creatinine, Blood 1.25 mg/dL (0.60-1.20); Globulin, Blood 3.8 g/dL (2.2-4.0); Potassium, Blood 4.2 mmol/L (3.5-5.5)
[2024-12-18 03:18] LABS: Influenza A, PCR NEGATIVE (NEGATIVE); Influenza B, PCR NEGATIVE (NEGATIVE); Resp Syncytial Virus, PCR NEGATIVE (NEGATIVE)
[2024-12-18 03:56] LABS: SARS-Cov-2 (COVID-19) PCR, MMC POSITIVE (NEGATIVE)
[2024-12-18] MEDS ORDERED: NS 1,000 ML IV SCH (04:00)
[2024-12-18] MEDS ORDERED: Acetaminophen 500 MG Tab PO ONE (04:00)
[2024-12-18] MEDS ORDERED: Ketorolac Tromethamine 30mg Vial IV ONE (04:05)
[2024-12-18 06:01] VITALS: BP 108/65
[2024-12-18 06:30] LABS: Source, Urine Clean Catch
[2024-12-18 06:52] LABS: Appearance, Urine Clear (Clear); Bilirubin, Urine Neg (Neg); Blood, Urine 1+ (Neg); Color, Urine Yellow (P-Yellow); Glucose Qualitative, Urine Neg (Neg); Ketones, Urine 2+ (Neg); Leukocyte Esterase, Urine Neg (Neg); Nitrite, Urine Neg (Neg); Protein, Urine 1+ (Neg); Urobilinogen, Urine NORM (Normal)
[2024-12-18 07:12] LABS: Amorphous Light (0-Heavy); Bacteria Mod /hpf; Mucus Heavy (0-Heavy); Red Blood Cells, Urine 0-2 /hpf (0-2); Squamous Epithelial Cells Rare /hpf (Few); White Blood Cells, Urine 0-2 /hpf (0-5)
== END 2024-12-18 08:12 | disposition home or self-care (01) ==
LOC: ER 02:27
PROVIDERS: Emergency Medicine
DX: U07.1 COVID-19 (principal); R53.1 Weakness; Z79.899 Other long term (current) drug therapy
CPT/HCPCS: 0241U; 71046; 80053; 81001; 85025; 87086; 93005; 93010; 96374; 96375; 99285-25; A9270; J1885; J7030

== ENCOUNTER 2025-11-15 01:26 | Emergency (ER) | payer MEDICARE ==
[~2025-11-15] VITALS: Ht 182.9 cm; Wt 63.5 kg
[2025-11-15 04:30] VITALS: BP 128/50
[2025-11-15 09:54] LABS: Acinetobacter baumannii DNA Not Detected copy/mL (NOT DETECT); Enterobacter cloacae DNA Not Detected copy/mL (NOT DETECT); Escherichia coli DNA Not Detected copy/mL (NOT DETECT); Haemophilus influenzae DNA Not Detected copy/mL (NOT DETECT); Klebsiella aerogenes DNA Not Detected copy/mL (NOT DETECT); Klebsiella oxytoca DNA Not Detected copy/mL (NOT DETECT); Klebsiella pneumoniae DNA Not Detected copy/mL (NOT DETECT); Moraxella catarrhalis DNA Detected Bin >=10^7 copy/mL (NOT DETECT); Proteus sp DNA Not Detected copy/mL (NOT DETECT); Pseudomonas aeruginosa DNA Not Detected copy/mL (NOT DETECT); Serratia marcescens DNA Not Detected copy/mL (NOT DETECT); Staphylococcus aureus DNA Not Detected copy/mL (NOT DETECT); Streptococcus agalactiae DNA Not Detected copy/mL (NOT DETECT); Streptococcus pneumoniae DNA Not Detected copy/mL (NOT DETECT); Streptococcus pyogenes DNA Not Detected copy/mL (NOT DETECT)
[2025-11-15 09:55] LABS: Chlamydia pneumonia Not Detected (NOT DETECT); Human Coronavirus RNA Not Detected (NOT DETECT); Human Metapneumovirus RNA Not Detected (NOT DETECT); Influenza virus A RNA Not Detected (NOT DETECT); Influenza virus B RNA Not Detected (NOT DETECT); Respiratory syncytial Vir RNA Not Detected (NOT DETECT); Rhinovirus+Enterovirus RNA Not Detected (NOT DETECT)
== END 2025-11-15 04:41 | disposition home or self-care (01) ==
LOC: ER 01:26
PROVIDERS: Emergency Medicine
DX: J18.9 Pneumonia, unspecified organism (principal); I10 Essential (primary) hypertension; N40.0 Benign prostatic hyperplasia without lower urinary tract symptoms; Z79.2 Long term (current) use of antibiotics; Z79.899 Other long term (current) drug therapy; Z59.89 Other problems related to housing and economic circumstances
CPT/HCPCS: 0528U; 99284